=== PATIENT | female | born 1930 | race Caucasian/White ===

== ENCOUNTER 2016-09-24 00:40 | Inpatient (IN) | payer MEDICARE ==
[~2016-09-24] VITALS: Ht 152.4 cm; Wt 69.2 kg
[2016-09-24] MEDS ORDERED: NORCO 7.5-3251 EACH PO (01:59)
[2016-09-24] MEDS ORDERED: PRILOSEC OTC20 MG PO (02:00)
[2016-09-24] MEDS ORDERED: NEURONTIN100 MG PO (02:00)
[2016-09-24] MEDS ORDERED: PHENERGAN 25 MG25 M1 PO (02:01)
[2016-09-24] MEDS ORDERED: GLUCOTROL5 MG PO (02:01)
[2016-09-24] MEDS ORDERED: VOLTAREN100 GM TD (02:02)
[2016-09-24] MEDS ORDERED: CIPRODEX OTIC7.5 ML AU (02:16)
[2016-09-24] MEDS ORDERED: [UNRECOGNIZED DRUG - CODE] TD (02:20)
[2016-09-24 09:16] LABS: HEMOGLOBIN 13.2 gm/dl (12.3-15.3); RED BLOOD COUNT 4.48 M/UL (4.00-5.10); WHITE BLOOD COUNT 8.8 K/UL (4.5-11.0)
[2016-09-24 09:25] LABS: BUN/CREATININE RATIO 25 (0-10)
--- NOTE | 2016-09-25 02:11 | NUR ---
2104 INFORMED PT ABOUT NG TUBE PLACEMENT WITH DAUGHTERS AT BEDSIDE. PT SAID MORE THAN ONCE THAT SHE DIDN'T WANT IT. PT STATED, "I'D RATHER ." PT'S FAMILY THEN SAID WE WON'T FORCE HER TO DO IT. PT DID NOT CHANGE HER MIND ABOUT NG TUBE PLACEMENT. DANYA MCKEON LPN
[2016-09-26 06:14] LABS: HEMOGLOBIN 13.6 gm/dl (12.3-15.3); RED BLOOD COUNT 4.65 M/UL (4.00-5.10); WHITE BLOOD COUNT 7.3 K/UL (4.5-11.0)
[2016-09-26 06:26] LABS: BUN/CREATININE RATIO 25 (0-10)
[2016-09-27 06:00] LABS: BUN/CREATININE RATIO 26 (0-10)
[2016-09-28 06:24] LABS: BUN/CREATININE RATIO 33 (0-10)
--- NOTE | 2016-09-28 20:22 | NUR ---
HAD DISCUSSION WITH 4 FAMILY MEMBERS CURRENTLY IN ROOM, THEY WERE REQUESTING THICKENER FOR PT, THEY SAID PT. REQUESTED "A COLD DRINK", PT. IS LYING QUIETLY WITH EYES CLOSED, DAYSHIFT REPORT SAID SHE SLEPT ALL DAY & WAS VERY HARD TO AROUSE, MD WAS AWARE & ORDERED A HEAD CT, WHICH RESULTS WERE PREVIOUSLY CALLED, EXPLAINED TO FAMILY MEMBERS THAT PT. IS ORDERED NPO, NOTHING BY MOUTH & BECAUSE SHE HAS FAILED 2 SWALLOWING EVALS (PER REPORT) THAT HER RISK OF ASPIRATION IS VERY HIGH, THEY VERBALIZE UNDERSTANDING, OFFERED MOUTH SWABS FOR ORAL COMFORT & THEY SAY THEY ALREADY HAVE SOME IN THE ROOM, WILL CONT. WITH PLAN OF CARE, PROVIDE COMFORT & SAFETY MEASURES
[2016-09-29 04:23] LABS: HEMOGLOBIN 12.8 gm/dl (12.3-15.3); RED BLOOD COUNT 4.32 M/UL (4.00-5.10); WHITE BLOOD COUNT 7.6 K/UL (4.5-11.0)
[2016-09-29 04:46] LABS: BUN/CREATININE RATIO 33 (0-10)
[2016-09-30] MEDS ORDERED: LORAZEPAM0.5 MG PO (02:17)
[2016-09-30 06:27] LABS: BUN/CREATININE RATIO 36 (0-10)
[2016-09-30] MEDS ORDERED: LEVEMIR100 UNIT/1 SC (15:39)
[2016-09-30] MEDS ORDERED: NOVOLOG100 UNIT/1 SC (15:40)
[2016-09-30] MEDS ORDERED: LIPITOR40 MG PO (15:40)
[2016-09-30] MEDS ORDERED: PLAVIX 75 MG TA75 MG PO (15:40)
[2016-09-30] MEDS ORDERED: ZESTRIL/PRINIVI10 MG PO (15:41)
[2016-09-30] MEDS ORDERED: LOPRESSOR50 MG PO (16:10)
[2016-09-30] MEDS ORDERED: TYLENOL325 MG PO (16:13)
[2016-09-30] MEDS ORDERED: PREVACID15 MG PO (16:22)
== END 2016-09-30 17:35 | disposition home health service (06) | DRG 65 ==
LOC: M/S 01:19
PROVIDERS: Internal Medicine Infectious Disease; Psychiatry & Neurology Neurology; ADMIT Internal Medicine
DX: I63.9 Cerebral infarction, unspecified (principal); G81.94 Hemiplegia, unspecified affecting left nondominant side; R47.01 Aphasia; G20 Parkinson's disease; Z74.01 Bed confinement status; Z66 Do not resuscitate; R13.12 Dysphagia, oropharyngeal phase; M06.9 Rheumatoid arthritis, unspecified; E11.9 Type 2 diabetes mellitus without complications; I10 Essential (primary) hypertension; E03.9 Hypothyroidism, unspecified; Z86.73 Personal history of transient ischemic attack (TIA), and cerebral infarction without residual deficits; Z87.891 Personal history of nicotine dependence; Z88.6 Allergy status to analgesic agent; Z88.5 Allergy status to narcotic agent; Z88.8 Allergy status to other drugs, medicaments and biological substances; Z79.891 Long term (current) use of opiate analgesic; Z79.899 Other long term (current) drug therapy; Z82.3 Family history of stroke
CPT/HCPCS: ECHO; 36415; 70450; 70551; 74230; 80048; 80053; 80061; 82550; 82553; 82962; 83036; 84443; 84484; 85027; 92526; 92610; 92611-GN; 93005; 93306; 93880; 97110; 97530; J0360; J1650; J1885; J3480; J7030; J7120